=== PATIENT | female | born 1970 | race Caucasian/White ===

== ENCOUNTER 2020-01-14 07:54 | Inpatient (IN) ==
[2020-01-14] MEDS ORDERED: CeFAZolin Syr 2,000MG/20 ML 2,000 MG/20 ML SYRINGE IVPB ONE (08:31)
[2020-01-14] MEDS ORDERED: Ringers Solution, Lactated 1,000 ML IVC SCH ×2 (08:45→09:00)
[2020-01-14] MEDS ORDERED: *HR* OxyCODONE Immed Rel 5 MG TABLET PO PRN (08:54)
[2020-01-14] MEDS ORDERED: Ondansetron 4 MG/2 ML VIAL IVP PRN ×2 (08:54→14:00)
[2020-01-14 09:17] LABS: BUN/Creatinine Ratio 22 (6-26); Blood Urea Nitrogen 12 mg/dL (6-20); Calcium 9.4 mg/dL (8.6-10.3); Carbon Dioxide 26 mEq/L (23-29); Chloride 108 mEq/L (98-107); Glucose 123 mg/dL (70-105); Osmolality,Calculated 293 (280-300); Potassium 3.7 mEq/L (3.5-5.1); Sodium 141 mEq/L (136-145); eGFR For African Americans > 60 (> 60); eGFR For Non-African Americans > 60 (> 60)
[2020-01-14] MEDS ORDERED: *HR* FentaNYL (PF) 100 MCG/2 ML VIAL ONE ×2 (09:19→11:20)
[2020-01-14] MEDS ORDERED: *HR* Succinylcholine 200 MG/10 ML VIAL IVP ONE (09:20)
[2020-01-14] MEDS ORDERED: *HR* Rocuronium Bromide 50 MG/5 ML VIAL ONE ×2 (09:20→11:16)
[2020-01-14] MEDS ORDERED: *HR* Propofol 200 MG/20 ML VIAL IVP ONE (09:20)
[2020-01-14] MEDS ORDERED: Lidocaine -MPF 2% 2 ML VIAL ONE (09:20)
[2020-01-14] MEDS ORDERED: *HR* Midazolam HCl 2 MG/2 ML VIAL ONE (09:20)
[2020-01-14] MEDS ORDERED: Bupivacaine/EPI 1:200k 0.25% 50 ML VIAL ONE (09:32)
[2020-01-14] MEDS ORDERED: Lidocaine HCL 4 ML Topical Solution (Laryng-O-Jet Kit Sterile Pak) TP ONE (09:35)
[2020-01-14] MEDS ORDERED: Dexamethasone 4 MG/ML VIAL ONE (10:20)
[2020-01-14] MEDS ORDERED: Ondansetron 4 MG/2 ML VIAL ONE (10:20)
[2020-01-14] MEDS ORDERED: Acetaminophen IV 1,000 MG/100 ML INFUS..BTL ONE (12:08)
[2020-01-14] MEDS ORDERED: *HR* HYDROMORPHONE 2 MG/ML VIAL ONE (12:22)
[2020-01-14] MEDS: *HR* HYDROmorphone PF 0.5 MG/0.5 ML SYRINGE IVP PRN ×4 (12:52→13:36)
[2020-01-14] MEDS ORDERED: Naloxone 0.4 MG/ML INJ IVP PRN (14:00)
[2020-01-14] MEDS ORDERED: *HR* FentaNYL (PF) 100 MCG/2 ML VIAL IVP PRN (14:00)
[2020-01-14] MEDS ORDERED: *HR* Promethazine 25 MG/ML VIAL IVP PRN (14:00)
[2020-01-14] MEDS: 0.9 % Sodium Chloride 1,000 ML IVC SCH ×2 (14:37→23:28)
[2020-01-14] MEDS: CeFAZolin 2 GM/120 ML BAG IVPB SCH ×2 (17:12→23:27)
[2020-01-14] MEDS: Acetaminophen IV 1,000 MG/100 ML INFUS..BTL IVPB SCH ×2 (17:12→23:27)
[2020-01-15] MEDS: Acetaminophen IV 1,000 MG/100 ML INFUS..BTL IVPB SCH (06:04)
[2020-01-15 06:17] LABS: Basophils % 0.2 %; Eosinophils % 0.2 %; Hematocrit 36.2 % (35.3-44.9); Hemoglobin 11.5 g/dL (11.5-15.4); Immature Granulocytes % 0.5 % (0-4); Lymphocytes # 2.2 K/mcL (0.6-4.6); Lymphocytes % 15.2 %; Mean Corpuscular HGB Conc 31.8 g/dL (31.6-35.5); Mean Corpuscular Hemoglobin 29.9 pg (28.0-33.3); Mean Corpuscular Volume 94.3 fL (83.0-100.0); Mean Platelet Volume 10.4 fL (9.4-12.4); Monocytes # 1.1 K/mcL (0.0-1.3); Monocytes % 7.7 %; Neutrophils # 10.8 K/mcL (1.6-8.9); Platelet Count 347 K/mcL (140-400); Red Blood Count 3.84 M/mcL (3.82-4.97); Red Cell Distribution Width 13.2 % (11.5-14.5); Segmented Neutrophils % 76.2 %; White Blood Count 14.2 K/mcL (4.3-11.1)
[2020-01-15 06:32] LABS: BUN/Creatinine Ratio 12 (6-26); Blood Urea Nitrogen 11 mg/dL (6-20); Calcium 8.6 mg/dL (8.6-10.3); Carbon Dioxide 26 mEq/L (23-29); Chloride 109 mEq/L (98-107); Glucose 115 mg/dL (70-105); Osmolality,Calculated 288 (280-300); Potassium 3.8 mEq/L (3.5-5.1); Sodium 139 mEq/L (136-145); eGFR For African Americans > 60 (> 60); eGFR For Non-African Americans > 60 (> 60)
[2020-01-15 06:37] VITALS: BP 111/68
[2020-01-15] MEDS ORDERED: lisinopriL 20 MG TABLET PO SCH (09:00)
[2020-01-15] MEDS ORDERED: Metoprolol XL (24 HR) Succ 50 MG TAB.ER.24H PO SCH (09:00)
[2020-01-15] MEDS ORDERED: amLODIPine 5 MG TABLET PO SCH (09:00)
[2020-01-15] MEDS: 0.9 % Sodium Chloride 1,000 ML IVC SCH (10:00)
== END 2020-01-15 12:50 | disposition home or self-care (01) | DRG 442 ==
LOC: SAMDAY 07:54 → 3ANU 14:01
PROVIDERS: ADMIT Pharmacist; ATTEND Pharmacist